=== PATIENT | male | born 1975 | race African-American/Black ===

== ENCOUNTER 2020-04-18 08:10 | Emergency (ER) | payer BC ==
[2020-04-18 08:16] VITALS: BP 177/89
[2020-04-18] MEDS ORDERED: KETOROLAC TROMETHAMINE INJ/PF 30 MG/1 ML SDV IV ONE (10:14)
[2020-04-18] MEDS ORDERED: NORMAL SALINE 1000 ML 1,000 ML IV ONE (10:15)
[2020-04-18] MEDS ORDERED: METOCLOPRAMIDE HCL INJ/PF 10 MG/2 ML SDV IV ONE (10:15)
[2020-04-18] MEDS ORDERED: DIPHENHYDRAMINE HCL 50 MG/ML VIAL IV ONE (10:15)
--- NOTE | 2020-04-18 10:18 | ER Document Report ---
ED General - General Chief Complaint: Headache Stated Complaint: HEADACHE Time Seen by Provider: 04/18/20 10:02 TRAVEL OUTSIDE OF THE [place] IN LAST 30 DAYS: No - HPI Notes: Patient is a 44-year-old male who presents to the emergency department for evaluation of 3 days of a headache. He has pain in the frontal area and behind his left eye. He states he does not frequently get headaches. He has not tried any medications at home to help his headache. He really dates nothing seems to make it better or worse. He did have nausea with one episode of emesis yesterday. He denies any neck stiffness. No fevers or chills. No sore throat. No difficulty seeing, speaking, swallowing. He is moving his arms and legs without difficulty. Patient's mother adds additional history. She states that the patient's brother suddenly of a heart attack several months ago. She states that this may be as a result of stress and depression from that. - Related Data Allergies/Adverse Reactions: No Known Allergies Allergy (Verified 04/18/20 08:23) Home Medications: None Past Medical History - General Information source: Patient - Cigar smoker - Social History Smoking Status: Current Every Day Smoker Chew tobacco use (# tins/day): No Frequency of alcohol use: Occasional Drug Abuse: None Family History: CVA - Mother with multiple CVAs Patient has homicidal ideation: No Pulmonary Medical History: Reports: Hx Pneumonia GI Medical History: Reports: Hx Gastroesophageal Reflux Disease Traumatic Medical History: Reports: Hx Fractures Past Surgical History: Reports: Hx Orthopedic Surgery - Right leg - Immunizations Hx Diphtheria, Pertussis, Tetanus Vaccination: No Review of Systems - Review of Systems Constitutional: No symptoms reported EENT: No symptoms reported Cardiovascular: No symptoms reported Respiratory: No symptoms reported Gastrointestinal: See HPI Genitourinary: No symptoms reported Musculoskeletal: No symptoms reported Skin: No symptoms reported Neurological/Psychological: See HPI -: Yes All other systems reviewed and negative Physical Exam - Vital signs Vitals: Temp Pulse Resp BP Pulse Ox 98.2 F 113 H 20 177/89 H 95 04/18/20 08:15 04/18/20 08:15 04/18/20 08:15 04/18/20 08:15 04/18/20 08:15 - Notes Notes: Vital signs reviewed, please refer to chart. Head is normocephalic, atraumatic. Pupils equal round, reactive to light. Neck is supple without meningismus. Heart is regular rate and rhythm. Lungs are clear to auscultation bilaterally. Abdomen is soft, nontender, normoactive bowel sounds throughout. Extremities without cyanosis, clubbing. Posterior calves are nontender. Peripheral pulses are equal. Skin is warm and dry. Patient is awake, alert, oriented x3. Cranial nerves II - XII are grossly intact without focal neurological deficits. Strength is plus 5 out of 5 bilateral upper and lower extremities. Sensation is intact. Reflexes symmetrical. Intact [id number], rapid alternating movements, [id number]. Course - Re-evaluation Re-evalutation: 04/18/20 10:18 Patient presents to the emergency department for evaluation. He complains of a headache. He states he does not frequently get headaches. He does not have any red flag symptoms, however. He has no nuchal rigidity. He has no fevers. He has normal neurological exam. His headache was gradual in onset. I suspect it is more likely to be stress related. The patient, however, does have a strong family history of CVA, and some concerns. I did get head and order a CT head, some basic blood work. I will treat him with a traditional migraine cocktail. Patient is currently stable, we will continue to monitor. 04/18/20 11:05 Patient's blood glucose was found to be elevated at 360. This certainly qualifies him with the diagnosis of new onset diabetes. He was given IV fluids. We will order a small amount of insulin. I will start him on Metformin. The importance of follow-up with primary care was stressed to the patient. The patient's mother states she will contact her primary care provider for possible follow-up. I will also give him the name of primary care on-call here, which is Dr. Riley. We talked at length about dietary choices, lifestyle modifications, patient voiced understanding. Otherwise, his headache is resolved after treatment. We will check to make sure blood sugars responded, sent home with Metformin and close follow-up. - Vital Signs Vital signs: Temp Pulse Resp BP Pulse Ox 98.2 F 113 H 20 177/89 H 95 04/18/20 08:15 04/18/20 08:15 04/18/20 08:15 04/18/20 08:15 04/18/20 08:15 - Laboratory Result Diagrams: 04/18/20 09:55 04/18/20 09:55 Laboratory results interpreted by me: 04/18/20 04/18/20 09:55 09:55 WBC 11.6 H RDW 14.2 H Absolute Neuts (auto) 9.5 H Seg Neutrophils % 82.2 H Sodium 136.5 L Chloride 97 L Glucose 361 H Discharge - Discharge Clinical Impression: Headache Diabetes mellitus Qualifiers: Diabetes mellitus prison insulin use: without keno attendant use Condition: Stable Disposition: HOME, SELF-CARE Instructions: Headache ([facility]), Diabetes ([facility]) Additional Instructions: Blood sugar was elevated to 360 today. This qualifies for a diagnosis of diabetes. Stay well-hydrated. Try to avoid simple carbohydrates and simple sugars as discussed. Take Metformin as prescribed. You need to follow-up with primary care in 1 week. If you develop worsening or new concerning symptoms of any sort, please return immediately to the emergency department for evaluation.
[2020-04-18 10:36] LABS: ALBUMIN 4.7 g/dL (3.5-5.0); ALKALINE PHOSPHATASE 99 U/L (38-126); ANION GAP 13 (5-19); ASPARTATE AMINO TRANSFERASE 27 U/L (17-59); BILIRUBIN,DIRECT 0.4 mg/dL (0.0-0.4); BILIRUBIN,TOTAL 0.8 mg/dL (0.2-1.3); BLOOD UREA NITROGEN 11 mg/dL (7-20); CALCIUM 10.2 mg/dL (8.4-10.2); CARBON DIOXIDE 27 mmol/L (22-30); CHLORIDE 97 mmol/L (98-107); GLUCOSE 361 mg/dL (75-110); POTASSIUM 4.9 mmol/L (3.6-5.0); TOTAL PROTEIN 8.2 g/dL (6.3-8.2)
[2020-04-18 10:37] LABS: ABSOLUTE LYMPHOCYTES (AUTO) 1.6 10^3/uL (0.5-4.7); ABSOLUTE MONOCYTES (AUTO) 0.4 10^3/uL (0.1-1.4); ABSOLUTE NEUT (AUTO) 9.5 10^3/uL (1.7-8.2); BASOPHILS % (AUTO) 0.2 % (0-2); EOSINOPHILS % (AUTO) 0.3 % (0-6); HEMOGLOBIN 15.1 g/dL (13.5-17.0); LYMPHOCYTES % (AUTO) 13.9 % (13-45); MEAN CORPUSCULAR HEMOGLOBIN 28.2 pg (27.0-33.4); MEAN CORPUSCULAR HGB CONC 34.2 g/dL (32.0-36.0); MEAN CORPUSCULAR VOLUME 82 fl (80-97); MONOCYTES % (AUTO) 3.4 % (3-13); PLATELET COUNT 277 10^3/uL (150-450); RED BLOOD COUNT 5.35 10^6/uL (4.35-5.55); RED CELL DISTRIBUTION WIDTH 14.2 % (11.5-14.0); SEGMENTED NEUTROPHILS % (AUTO) 82.2 % (42-78); TOTAL CELLS COUNTED % (AUTO) 100 %; WHITE BLOOD COUNT 11.6 10^3/uL (4.0-10.5)
--- NOTE | 2020-04-18 10:56 | RADIOLOGY REPORT (SQ) ---
EXAM DESCRIPTION: CT HEAD WITHOUT IMAGES COMPLETED DATE/TIME: 04/18/2020 10:47 am REASON FOR STUDY: headache, htn COMPARISON: None. TECHNIQUE: Axial images acquired through the brain without intravenous contrast. Images reviewed wi th bone, brain and subdural windows. Additional sagittal and coronal reconstructions were generated. Images stored on PACS. All CT scanners at this facility use dose modulation, iterative reconstruction, and/or weight based d osing when appropriate to reduce radiation dose to as low as reasonably achievable (ALARA). [facility]: Dose Right [facility]: CareDose [facility]: Dose Right [facility]: Teradose 4D [facility]: [employer] RADIATION DOSE: CT Rad equipment meets quality standard of care and radiation dose reduction techniq ues were employed. CTDIvol: 53.2 mGy. DLP: 991 mGy-cm. mGy. LIMITATIONS: None. FINDINGS: VENTRICLES: Normal size and contour. CEREBRUM: No masses. No hemorrhage. No midline shift. No evidence for acute infarction. Normal gra y/white matter differentiation. No areas of low density in the white matter. CEREBELLUM: No masses. No hemorrhage. No alteration of density. No evidence for acute infarction. EXTRAAXIAL SPACES: No fluid collections. No masses. ORBITS AND GLOBE: No intra- or extraconal masses. Normal contour of globe without masses. CALVARIUM: No fracture. PARANASAL SINUSES: No fluid or mucosal thickening. SOFT TISSUES: No mass or hematoma. OTHER: No other significant finding. IMPRESSION: NORMAL BRAIN CT WITHOUT CONTRAST. EVIDENCE OF ACUTE STROKE: NO. COMMENT: Quality ID # [id number]: Final reports with documentation of one or more dose reduction techniques (e.g., Automated exposure control, adjustment of the mA and/or kV according to patient size, use of iterative reconstruction technique) TECHNICAL DOCUMENTATION: JOB ID: [id number] 2010 [employer]- All Rights Reserved Reading location - IP/workstation name: [email or web address]
[2020-04-18] MEDS ORDERED: INSULIN REG, HUMAN 100 UNIT/ML 3 ML VIAL (PYX) IV ONE (11:07)
== END 2020-04-18 11:30 | disposition home or self-care (01) ==
LOC: ER 08:10
DX: R51.9 Headache, unspecified (principal); E11.9 Type 2 diabetes mellitus without complications; F17.290 Nicotine dependence, other tobacco product, uncomplicated
CPT/HCPCS: 99285; 96361; 96374; 96375; 36415; 85025; 80053; 70450; J1200; J1885; J2765; J1815; J7030